=== PATIENT | male | born 1950 | race Caucasian/White ===

== ENCOUNTER 2016-08-26 06:07 | Emergency (ER) | payer OTHER ==
[2016-08-26 06:13] VITALS: BP 0/0
[2016-08-26] MEDS ORDERED: EPINEPHRINE 1 MG/10 ML DISP.SYRIN. ONE (07:00)
[2016-08-26] MEDS ORDERED: AMIODARONE 150 MG/3 ML VIAL ONE (07:00)
[2016-08-26] MEDS ORDERED: SODIUM BICARB ADULT 8.4% 50 MEQ/50 ML DISP.SYRIN. ONE (07:00)
--- NOTE | 2016-08-26 07:01 | ED.ADGEN ---
Adult General Chief Complaint Chief Complaint: CPR/FULL ARREST HPI HPI Patient is a 65 year old man, with history of hypertension, with a recent dental extraction approximately 2 weeks ago, who presents emergency department via EMS as a CODE BLUE. Per EMS report, patient had complained of some shortness of breath earlier in the morning, and then collapsed. Patient's is en route to the emergency department this time. Hotel staff began CPR prior to arrival of EMS, EMS continued, patient's downtime is now estimated to be approximately 50 minutes, with less than 5 minutes between time of collapse and time of CPR onset. Patient was in V. fib upon EMS arrival, has remained refractory, head at this point received antiarrhythmics, epinephrine, and 5 attempts at defibrillation. Patient has remained in refractory V. fib per EMS report. LMA is in place. Upon arrival to the emergency department, initial rhythm check reveals asystole on the monitor. Review of Systems Review of Systems Unable to obtain secondary to clinical condition. Current Medications Current Medications Current Medications Medications (Trade) Dose Ordered Sig/Sheryl Start Time Stop Time Status Last Admin Dose Admin Amiodarone HCl (Cordarone) 300 mg 1X ONCE 08/26/16 07:15 08/26/16 07:16 DC 08/26/16 06:13 300 MG Epinephrine HCl 1 mg 1X ONCE 08/26/16 07:15 08/26/16 07:16 DC 08/26/16 06:14 1 MG Sodium Bicarbonate 50 meq 1X ONCE 08/26/16 07:15 08/26/16 07:16 DC 08/26/16 06:13 50 MEQ Allergies Allergies Allergies Coded Allergies Type Severity Reaction Last Updated Verified No Known Drug Allergies 08/26/16 No Physical Exam Physical Exam Constitutional: Well developed, well nourished, CPR in progress, pale and slightly plethoric. HENT: Normocephalic, atraumatic, bilateral external ears normal, LMA in place with bag ventilations being administered, no oral exudates, nose normal. [] Eyes: Pupils are 3 mm bilaterally, fixed, conjunctiva normal, no discharge. [] Neck: C-collar in place initially, was removed upon arrival to ED. Cardiovascular: Chest compressions in progress, initially with mechanical device , then switch to manual, with good pulses noted during chest compressions, no cardiac activity or pulses noted on pulse check. Lungs & Thorax: LMA and place, patient with adequate chest rise, and breath sounds noted bilaterally with bag valve ventilations, no spontaneous respiratory activity. Abdomen: Bowel sounds absent, soft, no masses, no pulsatile masses. [] Skin: Warm, dry, no erythema, no rash. Pale. Slightly plethoric upon arrival, no evidence of cyanosis with bag valve ventilations. Back: No tenderness, no CVA tenderness. [] Extremities: No cyanosis, no clubbing, ROM intact, no edema. [] Neurologic: GCS of 3 Psychologic: GCS of 3 Current Patient Data Vital Signs Vital Signs Date Time Temp Pulse Resp B/P Pulse Ox O2 Delivery O2 Flow Rate FiO2 08/26/16 06:13 0 0/0 Lab Values Laboratory Tests Test 08/26/16 06:14 POC Troponin I 0.01ng/ml (<0.08) EKG EKG ECG: Rhythm strip: Asystole in all leads. As interpreted by me. [] Radiology/Procedures Radiology/Procedures Bedside ultrasound: Cardiac standstill noted, no evidence of tamponade. As interpreted by me.] Course & Med Decision Making Course & Med Decision Making Pertinent Labs and Imaging studies reviewed. (See chart for details) Resuscitative efforts continued upon arrival emergency department, patient noted to be asystole upon initial rhythm check in the ED. Patient received additional epinephrine, bicarbonate, chest compressions continued manually, repeat rhythm checks revealed continued asystole. Please see nursing notes for exact dosages and times. Patient was at 50 minutes out from time of collapse at initial arrival to the ED per EMS report, bedside ultrasound revealed cardiac standstill, with no tamponade, no reversible etiologies identified. Due to prolonged down time with continued asystole despite efforts, resuscitative efforts were discontinued at 0616. Karlos Ferraro, was contacted via telephone, and case was discussed. Patient's patient's age, history, presentation, no indication for suspicious . Dr. Mendez states that he will certify the patient's . Patient's , Letty Bedolla, in family room, informed of patient's . She states that the patient had recently been seen by his family physician, and was told he was in good health. Discussed that at this time the patient is not considered a candidate for a post , patient's to decide if she wishes to proceed with an autopsy. Winder Tender was contacted, tire room supervisor and patient's at bedside. Dragon Disclaimer Dragon Disclaimer This electronic medical record was generated, in whole or in part, using a voice recognition dictation system. Departure Impression: Primary Impression: Cardiopulmonary arrest Disposition: 20 Condition: NATHAN NEAL DO Aug 26, 2016 07:00
[2016-08-26] MEDS ORDERED: SODIUM BICARB ADULT 8.4% 50 MEQ/50 ML DISP.SYRIN. IV ONE (07:15)
[2016-08-26] MEDS ORDERED: AMIODARONE 150 MG/3 ML VIAL IVP ONE (07:15)
[2016-08-26] MEDS ORDERED: EPINEPHRINE 1 MG/10 ML DISP.SYRIN. IV ONE (07:15)
== END 2016-08-26 09:58 | disposition expired ==
LOC: ER 06:07
DX: I46.9 Cardiac arrest, cause unspecified (principal); I10 Essential (primary) hypertension; R06.02 Shortness of breath
CPT/HCPCS: 84484; 96374; 96375; 99285; J0171; J0282